=== PATIENT | female | born 1950 | race Caucasian/White ===

== ENCOUNTER 2017-12-23 11:43 | Observation (INO) | payer OTHER ==
[~2017-12-23] VITALS: Ht 165.1 cm; Wt 84.4 kg
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
[2017-12-23 12:35] LABS: BASOPHILS # (AUTO) 0.1 (0.0-0.1); BASOPHILS % 0.8 % (0.0-1.0); EOSINOPHILS # (AUTO) 0.3 (0.0-0.4); EOSINOPHILS % 4.9 % (0.0-6.0); HEMATOCRIT 42.3 % (34.2-44.1); HEMOGLOBIN 13.7 g/dL (12.0-16.0); LYMPHOCYTES # (AUTO) 1.7 (1.0-3.2); LYMPHOCYTES % 26.2 % (18.0-39.1); MEAN CORPUSCULAR HEMOGLOBIN 28.5 pg (28-32); MEAN CORPUSCULAR HGB CONC 32.4 g/dL (31-35); MEAN CORPUSCULAR VOLUME 88.1 fL (81-99); MONOCYTES # (AUTO) 0.6 (0.2-0.8); MONOCYTES % 10.1 % (4.4-11.3); NEUTROPHILS # (AUTO) 3.7 (2.1-6.9); NEUTROPHILS % 57.7 % (38.7-80.0); PLATELET COUNT 179 x10e3/uL (140-360); RED CELL DISTRIBUTION WIDTH 15.7 % (11.7-14.4)
--- NOTE | 2017-12-23 12:39 | Diagnostic Imaging Report ---
PROCEDURE: A single AP view of the chest. COMPARISON: None. INDICATIONS: CHEST PAIN FINDINGS: Patient is mildly rotated. Lines/tubes: None. Lungs: Lungs are well-inflated. No consolidation or pulmonary edema. Pleura: There is no pleural effusion or pneumothorax. Heart and mediastinum: Enlarged cardiac silhouette. Pulmonary vasculature is normal. Bones: No acute bony abnormality. IMPRESSION: 1. enlarged cardiac silhouette, without acute cardiopulmonary disease. Oziel Jaimes M.D. Dictated by: Oziel Jaimes M.D. on 12/23/2017 at 12:39 Electronically approved by: Oziel Jaimes M.D. on 12/23/2017 at 12:39
[2017-12-23 12:47] LABS: INR 1.1; PROTHROMBIN TIME 13.4 seconds (11.9-14.5)
[2017-12-23 12:48] LABS: PARTIAL THROMBOPLASTIN TIME 27.1 seconds (23.8-35.5)
[2017-12-23 13:00] LABS: ALANINE AMINOTRANSFERASE 11 IU/L (0-55); ALBUMIN 3.3 g/dL (3.5-5.0); ALKALINE PHOSPHATASE 66 IU/L (40-150); ANION GAP 12.9 mmol/L (8-16); BLOOD UREA NITROGEN 13 mg/dL (7-26); BUN/CREATININE RATIO 19 (6-25); CALCIUM 8.9 mg/dL (8.4-10.2); CARBON DIOXIDE 27 mmol/L (22-29); CHLORIDE 105 mmol/L (98-107); CHOL/HDL RATIO 3.1 (3.0-3.6); CHOLESTEROL 150 MD/DL (0-199); CREATININE, SERUM 0.68 mg/dL (0.57-1.11); EST GLOMERULAR FILTRATION RATE > 60 ML/MIN (60-); GLUCOSE 110 mg/dL (74-118); HDL CHOLESTEROL 48 MG/DL (40-60); LDL CHOLESTEROL 71 MG/DL (60-130); MAGNESIUM 1.6 MG/DL (1.3-2.1); POTASSIUM 3.9 mmol/L (3.5-5.1); SODIUM 141 mmol/L (136-145); TRIGLYCERIDES 156 MG/DL (0-149)
[2017-12-23 13:20] LABS: THYROID STIMULATING HORMONE 1.782 uIU/mL (0.350-4.940)
[2017-12-23] MEDS ORDERED: HYDROCODONE/APAP 5MG-325MG TAB PO ONE (13:45)
[2017-12-23] MEDS ORDERED: ASPIRIN 81 MG CHEW TAB PO ONE (14:15)
[2017-12-23] MEDS: NITROGLYCERIN 2% OINT 1 GM PKT TOP SCH ×2 (14:37→21:00)
[2017-12-23] MEDS: FAMOTIDINE 20 MG TAB PO SCH ×2 (14:37→21:00)
--- OUTSIDE RECORDS SUMMARY | 2017-12-23 19:42 | XMS REPORT | Clinical Summary ---
Author Author [facility] Address Unknown Phone Unavailable Care Team Providers Care Weight Guesser Name Role Phone Christopher Gunderson MD PCP [...] (VITAMIN C) 500 MG tablet every morning. ynpypsjd-ahc-[id number]-lute Take 1 tablet by mouth Active in [...] Date Type Specialty Care Team Description 04/30/2017 [facility] General Internal Medicine Elbert Fry, Elevated INR [...] Procedure Name Priority Date/Time Associated Diagnosis Comments NM APPLY FOREARM Routine 01/30/2017 Results for this [...] vein thrombosis/pulmonary embolism. Specimen Performing Laboratory Blood [facility] DEPARTMENT OF PATHOLOGY AND GENOMIC MEDICINE [id number] [place] [address] [place] [address] * CBC with platelet and differential (05/02/2017 [...] (promyelocytes, myelocytes, metamyelocytes) Specimen Performing Laboratory Blood [facility] DEPARTMENT OF PATHOLOGY AND GENOMIC MEDICINE [id number] [place] [id number] * Hemoglobin & hematocrit (04/30/2017 7:59 PM) Only the most recent of 3 results within the time period is included. Component Value Ref Range HGB 11.3 (L) 12.0 - 16.0 g/dL HCT 35.2 (L) 37.0 - 47.0 % Specimen Performing Laboratory Blood [facility] DEPARTMENT OF PATHOLOGY AND GENOMIC MEDICINE [id number] [place] [address] [place] [address] * XR Chest 1 Vw Portable (04/30/2017 10:47 AM) Specimen Performing Laboratory [address] [address] Narrative EXAMINATION:XR CHEST 1 VW PORTABLE CLINICAL HISTORY:Cough COMPARISON:December 20, 2015. FINDINGS:. The mediastinum appears unremarkable. The lungs are free of acute abnormality. IMPRESSION: There is cardiomegaly. There are no acute findings visualized and the single view [id number] Procedure Note Interface, Radiology Results Incoming - 04/30/2017 11:00 AM CDT EXAMINATION: XR CHEST 1 VW PORTABLE CLINICAL HISTORY: Cough COMPARISON: December 20, 2015. FINDINGS:. The mediastinum appears unremarkable. The lungs are free of acute abnormality. IMPRESSION: There is cardiomegaly. There are no acute findings visualized and the single view [id number] * Estimated GFR (04/30/2017 10:27 AM) Only [...] and Americans. Specimen Performing Laboratory Plasma specimen [facility] DEPARTMENT OF PATHOLOGY AND GENOMIC MEDICINE [address] [place] [address] * Partial thromboplastin time, activated (04/30/2017 10:27 AM) Component Value Ref Range PTT 66.5 (H) 23.0 - 36.0 sec Comment: PTT therapeutic range for unfractionated heparin is 61.0-112.0 seconds which corresponds to Anti-Xa 0.3-0.7 U/ml. Specimen Performing Laboratory Blood [facility] DEPARTMENT OF PATHOLOGY AND [facility] MEDICINE [id number] [place] [address] [place] [address] * Comprehensive metabolic panel (04/30/2017 10:27 AM) [...] 1.2 mg/dL Specimen Performing Laboratory Plasma specimen [facility] DEPARTMENT OF PATHOLOGY AND [facility]ICINE [address] [place] [address] [place] [address] * Uric acid level (04/26/2017 5:42 PM) Component Value Ref Range Uric acid 3.9 2.4 - 5.7 mg/dL Specimen Performing Laboratory Plasma specimen [facility] DEPARTMENT OF PATHOLOGY AND [facility]IC[facility] [address] [place] [address] [place] [address] * PV duplex venous lower extremity (04/26/2017 5:31 PM) Specimen Performing Laboratory [facility] [address] [place] [address] Narrative The right lower extremity was negative for deep vein thrombosis. PRELIMINARY REPORT: NEGATIVE DVT STUDY * XR Knee 4+ Vw Left (04/26/2017 4:35 PM) Specimen Performing Laboratory [facility] [address] [place] [address] Narrative EXAMINATION:XR KNEE 4VW LEFT CLINICAL HISTORY:knee pain and edema COMPARISON:None IMPRESSION: Small suprapatellar joint effusion. Medial soft tissue edema. No fracture or dislocation Moderate degenerative patellofemoral joint space narrowing [id number] Procedure Note Interface, Radiology Results Incoming - 04/26/2017 4:43 PM CDT EXAMINATION: XR KNEE 4 VW LEFT CLINICAL HISTORY: knee pain and edema COMPARISON: None IMPRESSION: Small suprapatellar joint effusion. Medial soft tissue edema. No fracture or dislocation Moderate degenerative patellofemoral joint space narrowing [id number] * SPLINT APPLICATION (01/30/2017 8:42 PM) Narrative [...] Contrast (01/30/2017 6:51 PM) Specimen Performing Laboratory [facility] [address] [place] [address] Narrative Procedure:CT CERVICAL SPINE WO CONTRAST REFERRING [...] fracture or subluxation of the cervical spine. [facility]-[id number] Procedure Note Interface, Radiology Results Incoming - [...] fracture or subluxation of the cervical spine. [id number] * CT Maxillofacial Wo Contrast (01/30/2017 6:51 PM) Specimen Performing Laboratory [facility] [address] [place] [address] Narrative EXAMINATION: CT MAXILLOFACIAL WO CONTRAST CLINICAL [...] There is no acute maxillofacial osseous abnormality. [id number] Procedure Note Interface, Radiology Results Incoming - [...] There is no acute maxillofacial osseous abnormality. [id number] * CT Head Wo Contrast (01/30/2017 6:51 PM) Specimen Performing Laboratory [facility] [address] [place] [address] Narrative Procedure:CT HEAD WO CONTRAST REFERRING PHYSICIAN:HOSSEIN [...] evidence of acute intracranial abnormality or hemorrhage. [facility]-[id number] Procedure Note Interface, Radiology Results Incoming - [...] evidence of acute intracranial abnormality or hemorrhage. [facility]-[id number] * XR Hand 3+ Vw Right (01/30/2017 6:10 PM) Specimen Performing Laboratory [facility] [address] [place] [address] Narrative EXAMINATION:XR HAND 3VW RIGHT CLINICAL HISTORY:JOINT PAINHAND COMPARISON:None. IMPRESSION: Bony structures are diffusely osteopenic. There are moderate to severe degenerative changes involving the first carpometacarpal joint consistent with osteoarthritis. There is no evidence of acute fracture or dislocation. [id number] Procedure Note Interface, Radiology Results Incoming - 01/30/2017 7:06 PM CDT EXAMINATION: XR HAND 3 VW RIGHT CLINICAL HISTORY: JOINT PAIN HAND COMPARISON: None. IMPRESSION: Bony structures are diffusely osteopenic. There are moderate to severe degenerative changes involving the first carpometacarpal joint consistent with osteoarthritis. There is no evidence of acute fracture or dislocation. [id number] * XR Wrist 3+ Vw Right (01/30/2017 6:10 PM) Specimen Performing Laboratory [facility] [address] [place] [address] Narrative EXAMINATION:XR WRIST 3VW RIGHT CLINICAL HISTORY:WRIST PAINFIRST STUDY COMPARISON:None. IMPRESSION: Bony structures are diffusely osteopenic. There is no evidence of acute fracture or dislocation. Moderate to severe degenerative changes are present in the first carpometacarpal joint consistent with osteoarthritis. [id number] Procedure Note Interface, Radiology Results Incoming - 01/30/2017 7:07 PM CDT EXAMINATION: XR WRIST 3 VW RIGHT CLINICAL HISTORY: WRIST PAIN FIRST STUDY COMPARISON: None. IMPRESSION: Bony structures are diffusely osteopenic. There is no evidence of acute fracture or dislocation. Moderate to severe degenerative changes are present in the first carpometacarpal joint consistent with osteoarthritis. [id number] after 12/22/2016 Insurance Payer Benefit Subscriber ID Type Phone Address Plan / Group [facility] xxxxxxxxxxx Work: [address] [place] [id number] Home:
--- OUTSIDE RECORDS SUMMARY | 2017-12-23 19:42 | XMS REPORT ---
Author Author [facility] Address Unknown Phone Unavailable Care Team Providers Care Lane Marker Installer Name Role Phone MIKA CONNOLLY Unavailable Unavailable Problems This patient has no known problems. Allergies, Adverse Reactions, Alerts This patient has no known allergies or adverse reactions. Medications This patient has no known medications. Results Test Description Test Time Test Comments Text Results Atomic Results Result Comments CHEST SINGLE (PORTABLE) [place] [address] Patient Name: RAUL BOUDREAUX MR #: [id number] : 1950 Age/Sex: 67/F Req #: [id number] Adm Physician: Ordered by: MIKA CONNOLLY MD Report #: [id number] Location: ER Room/Bed: Procedure: [id number] DX/CHEST SINGLE (PORTABLE) Exam Date: 12/23/17 Exam Time: 1220 REPORT STATUS: Signed PROCEDURE: A single AP view of the chest. COMPARISON: None. INDICATIONS: CHEST PAIN FINDINGS: Patient is mildly rotated. Lines/tubes: None. Lungs: Lungs are well-inflated. No consolidation or pulmonary edema. Pleura: There is no pleural effusion or pneumothorax. Heart and mediastinum: Enlarged cardiac silhouette. Pulmonary vasculature is normal. Bones: No acute bony abnormality. IMPRESSION: 1. enlarged cardiac silhouette, without acute cardiopulmonary disease. Zacarias Jaimes M.D. Dictated by: Zacarias Jaimes M.D. on 12/23/2017 at 12:39 Electronically approved by: Zacarias Jaimes M.D. on 12/23/2017 at 12 :39 Dictated By: ZACARIAS JAIMES MD 1239 Transcribed By: SUNNY on 12/23/17 1239 COPY TO: MIKA CONNOLLY MD
[2017-12-23 21:00] VITALS: BP 110/59
[2017-12-23 21:50] LABS: CREATINE KINASE 15 IU/L (29-168)
[2017-12-24] VITALS (8 sets, daily range): BP systolic 97–156; BP diastolic 53–90
[2017-12-24] MEDS: NITROGLYCERIN 2% OINT 1 GM PKT TOP SCH ×5 (03:00→22:24)
[2017-12-24] MEDS ORDERED: DILTIAZEM 24HR180 MG PO (06:12)
[2017-12-24] MEDS ORDERED: METOPROLOL TART50 MG PO ×2 (06:12→06:32)
[2017-12-24 06:32] LABS: BASOPHILS # (AUTO) 0.1 (0.0-0.1); BASOPHILS % 0.9 % (0.0-1.0); EOSINOPHILS # (AUTO) 0.4 (0.0-0.4); EOSINOPHILS % 6.6 % (0.0-6.0); HEMATOCRIT 38.5 % (34.2-44.1); HEMOGLOBIN 12.6 g/dL (12.0-16.0); LYMPHOCYTES # (AUTO) 2.1 (1.0-3.2); LYMPHOCYTES % 35.4 % (18.0-39.1); MEAN CORPUSCULAR HEMOGLOBIN 28.6 pg (28-32); MEAN CORPUSCULAR HGB CONC 32.7 g/dL (31-35); MEAN CORPUSCULAR VOLUME 87.5 fL (81-99); MONOCYTES # (AUTO) 0.7 (0.2-0.8); MONOCYTES % 11.6 % (4.4-11.3); NEUTROPHILS # (AUTO) 2.6 (2.1-6.9); PLATELET COUNT 169 x10e3/uL (140-360); RED CELL DISTRIBUTION WIDTH 15.6 % (11.7-14.4)
[2017-12-24] MEDS ORDERED: MULTI-VITAMIN1 EACH PO (06:32)
[2017-12-24] MEDS ORDERED: DOCUSATE CALCI240 MG PO (06:32)
[2017-12-24] MEDS ORDERED: PRAVASTATIN SOD20 MG PO (06:32)
[2017-12-24] MEDS ORDERED: LISINOPRIL2.5 MG PO (06:32)
[2017-12-24] MEDS ORDERED: ALPRAZOLAM0.25 M1 PO (06:32)
[2017-12-24] MEDS ORDERED: lidocaine patch (06:32)
[2017-12-24] MEDS ORDERED: CLONAZEPAM0.5 MG PO (06:32)
[2017-12-24] MEDS ORDERED: LORATADINE10 MG PO (06:32)
[2017-12-24] MEDS ORDERED: FERROUS SULFAT324 MG PO (06:32)
[2017-12-24] MEDS ORDERED: ASPIR-LOW81 MG (06:32)
[2017-12-24] MEDS ORDERED: IPRATROPIU0.2 MG/1 M NEB (06:32)
[2017-12-24] MEDS ORDERED: VITAMIN D1000 UNI1 PO (06:32)
[2017-12-24] MEDS ORDERED: PANTOPRAZOLE SO40 MG PO (06:32)
[2017-12-24] MEDS ORDERED: CYMBALTA30 MG PO (06:32)
[2017-12-24] MEDS ORDERED: CALCIUM 500+D1 EACH PO (06:32)
[2017-12-24 06:58] LABS: ANION GAP 12.3 mmol/L (8-16); BLOOD UREA NITROGEN 11 mg/dL (7-26); BUN/CREATININE RATIO 15 (6-25); CALCIUM 8.8 mg/dL (8.4-10.2); CARBON DIOXIDE 29 mmol/L (22-29); CHLORIDE 105 mmol/L (98-107); CHOL/HDL RATIO 3.5 (3.0-3.6); CHOLESTEROL 144 MD/DL (0-199); CREATINE KINASE 11 IU/L (29-168); CREATININE, SERUM 0.72 mg/dL (0.57-1.11); EST GLOMERULAR FILTRATION RATE > 60 ML/MIN (60-); GLUCOSE 107 mg/dL (74-118); HDL CHOLESTEROL 41 MG/DL (40-60); LDL CHOLESTEROL 70 MG/DL (60-130); POTASSIUM 4.3 mmol/L (3.5-5.1); SODIUM 142 mmol/L (136-145); TRIGLYCERIDES 165 MG/DL (0-149)
--- NOTE | 2017-12-24 08:55 | Consultation ---
DATE OF CONSULTATION: December 24, 2017 CARDIOLOGY CONSULTATION REASON FOR CONSULTATION: Chest pain and AFib. HPI: This is a 67-year-old female that presented with chest pain and discomfort. According to the her, she started having chest pain, palpitations and heart rate was high. She described it as a pressure with tightness and felt in the center of her chest with no radiation on a scale of 5/10. She also she had difficulty with breathing and nauseated. She states that it started yesterday and it came again today and that she decided to come to the emergency room for evaluation. She has a history of AFib, and a recent implant of the Watchman device because she was not able to tolerate anticoagulation. She denies any dizziness, any headache or diaphoresis. Troponin was negative. EKG was AFib with controlled rate. Chest x-ray was negative. BNP was 427. PAST MEDICAL HISTORY: Hypertension, CAD, AFib, anxiety, and GERD. PAST SURGICAL HISTORY: Tonsillectomy, stomach stapling, Watchman device. FAMILY HISTORY: Positive for hypertension. SOCIAL HISTORY: No smoking. No drinking. MEDICATIONS: See med list. ALLERGIES: SHE IS ALLERGIC TO REGLAN AND CEPHALEXIN. REVIEW OF SYSTEMS: Negative except as mentioned above. PHYSICAL EXAMINATION VITAL SIGNS: Temperature 97, heart rate 75, blood pressure 100/60, respirations 18, oxygen saturation 98% on room air. GENERAL: She is awake, alert and oriented times 3. HEENT: Mucous membrane moist. NECK: Supple. LUNGS: Bilateral clear to auscultation. CARDIOVASCULAR: Irregularly irregular. ABDOMEN: Soft. NEUROLOGICAL: Intact. EXTREMITIES: With no edema. LABS: Sodium 142, potassium 4.3, chloride 105, CO2 29, BUN 11, creatinine 0.72, glucose 107. White blood cells 5.79, hemoglobin 12.6, hematocrit 38.5, and platelet 169,000. PT 13.4, PTT 27.1 and INR 1.1. IMPRESSION 1. Chest pain. 2. Atrial fibrillation. 3. Hypertension. 4. History of Watchman implanted device. 5. History of gastroesophageal reflux disease. 6. History of stomach stapling. ASSESSMENT AND PLAN: Will get an echo to assess the LV and the valve function. Her BNP was elevated, but she has no clinical symptoms of CHF. Heart rate is controlled. She is on baby aspirin. Will get serial cardiac enzymes. Further cardiac workup pending clinical course. Thank you for this consultation. DICTATED BY KEN CALIX NP Job#: [id number] RI
[2017-12-24] MEDS ORDERED: ASPIRIN 325 MG TAB EC PO SCH (09:00)
[2017-12-24] MEDS: FAMOTIDINE 20 MG TAB PO SCH ×2 (10:42→21:05)
[2017-12-24] MEDS ORDERED: IPRATROPIUM BROMIDE 0.02% 2.5 ML NEB NEB PRN ×2 (13:15→13:30)
--- NOTE | 2017-12-24 15:11 | History and Physical ---
HISTORY OF PRESENT ILLNESS: She is a 67-year-old female with a past medical history positive for hypertension, chronic atrial fibrillation, history of gastric stapling, gastric bleeding, who came to the hospital complaining of chest pain and palpitations. The patient was found to be in atrial fibrillation with some PVCs, no evidence of any ST segment elevation or depression. Troponins are negative. Patient has been seen by Dr. Garcia in cardiology, who ordered an echocardiogram. The echocardiogram showed an ejection fraction of 30% to 35%. He wants to order an electrophysiology cardiology evaluation, also. REVIEW OF SYSTEMS: CARDIOVASCULAR: She did have chest pain, which is resolved. No shortness of breath. RESPIRATORY: No shortness of breath. No cough. GASTROINTESTINAL: No nausea, no vomiting, no diarrhea. GENITOURINARY: No frequency, no dysuria. ALLERGIES: ALLERGIC TO REGLAN AND CEPHALEXIN. SOCIAL HISTORY: She does not smoke. She does not drink. PAST MEDICAL HISTORY: Chronic atrial fibrillation, hypertension, gastroesophageal reflux disease, history of GI bleed and a history of cardiomyopathy. PHYSICAL EXAMINATION: VITAL SIGNS: Blood pressure 134/73. Temperature 96.4. Heart rate 73 per minute. Respiratory rate is 18 per minute. Oxygen saturation 99%. LAB: On the BMP: Sodium 142, potassium 4.3, chloride 105, CO2 29, BUN 11, creatinine 0.72, glucose is 107. On the CBC: White blood count 5.79, hemoglobin 12.6, hematocrit 38.5, platelet count 169,000. PT 13.4, PTT 27.1, INR 1.10. AST 15, ALT 11, total bilirubin 0.3, alkaline phosphatase 66. Electrocardiogram, as I said, showed atrial fibrillation with some PVCs, left axis deviation, minimal voltage criteria for LVH, nonspecific ST-T wave abnormalities, prolonged QT. Troponins are completely negative also times 3. FINAL IMPRESSION: 1. Chest pain. 2. Chronic atrial fibrillation. 3. Hypertension. 4. Gastroesophageal reflux disease. 5. History of prior gastrointestinal bleed secondary to Coumadin and Xarelto. 6. Severe cardiomyopathy. PLAN OF TREATMENT: Continue aspirin 325 mg daily. Continue nitroglycerin 0.4 mg sublingual as needed for chest pain. We are going to resume the home medications. Dr. Garcia saw her from the cardiology point of view. He recommended an electrophysiology consultation. We are going to continue calcium carbonate 500 mg daily. Cholecalciferol 1000 units daily. Clonazepam 0.5 mg daily. Cardizem 180 mg daily. Colace 100 mg daily. Cymbalta 30 mg daily. Pepcid 20 mg twice a day. Ferrous sulfate 325 mg daily. Albuterol q.8 h. as needed for shortness of breath. Lisinopril 2.5 mg daily. Claritin 10 mg daily. Metoprolol, she is taking 50 mg in the morning and 100 mg at night. Multivitamin 1 tablet daily. Nitroglycerin paste 1 gram to chest wall q.6 h. Protonix 40 mg daily. Pravastatin 40 mg daily. I asked the patient about anticoagulation. Apparently she has been anticoagulated before with Coumadin and Xarelto. She got major bleeding; so, she was placed on a cardiac device and she cannot get anticoagulation because of that. She is just taking aspirin. Dr. Garcia is the protective signal operations supervisor on the case. He is going to order an electrophysiology cardiology consultation. Job#: [id number] EV
[2017-12-24] MEDS ORDERED: RIVAROXABAN 15 MG TABLET PO SCH (16:30)
[2017-12-24] MEDS ORDERED: METOPROLOL TARTRATE 50 MG TAB PO SCH (21:00)
[2017-12-24] MEDS ORDERED: PRAVASTATIN 20 MG TAB PO SCH (21:00)
[2017-12-25] VITALS: BP 156/81
[2017-12-25 00:51] VITALS: BP 134/81
[2017-12-25 04:00] VITALS: BP 127/63
[2017-12-25 08:26] VITALS: BP 121/68
[2017-12-25] MEDS: NITROGLYCERIN 2% OINT 1 GM PKT TOP SCH (08:48)
[2017-12-25] MEDS: FAMOTIDINE 20 MG TAB PO SCH (08:49)
[2017-12-25] MEDS ORDERED: DOCUSATE CALCIUM 240 MG PO SCH (09:00)
[2017-12-25] MEDS ORDERED: NON-FORMULARY MEDICATION (Pravastatin Sodium 20 MG) PO SCH (09:00)
[2017-12-25] MEDS ORDERED: ASPIRIN 81 MG CHEW TAB PO SCH (09:00)
[2017-12-25] MEDS ORDERED: MULTIVITAMINS/MINERALS TAB PO SCH (09:00)
[2017-12-25] MEDS ORDERED: DOCUSATE SODIUM 100 MG CAP PO SCH (09:00)
[2017-12-25] MEDS ORDERED: DULOXETINE HCL 30 MG DELAYED RELEASE PO SCH (09:00)
[2017-12-25] MEDS ORDERED: CALCIUM CARBONATE 500 MG CHEWABLE TABS PO SCH (09:00)
[2017-12-25] MEDS ORDERED: CHOLECALCIFEROL 1,000 UNIT TAB PO SCH (09:00)
[2017-12-25] MEDS ORDERED: LISINOPRIL 2.5 MG TAB PO SCH (09:00)
[2017-12-25] MEDS ORDERED: FERROUS SULFATE 325 MG TAB PO SCH (09:00)
[2017-12-25] MEDS ORDERED: CLONAZEPAM 0.5 MG TAB PO SCH (09:00)
[2017-12-25] MEDS ORDERED: LORATADINE 10 MG TAB PO SCH (09:00)
[2017-12-25] MEDS ORDERED: DILTIAZEM HCL 180 MG CAP CD PO SCH (09:00)
[2017-12-25] MEDS ORDERED: METOPROLOL TARTRATE 50 MG TAB PO SCH (09:00)
[2017-12-25] MEDS ORDERED: PANTOPRAZOLE SOD 40 MG TABEC PO SCH (09:00)
[2017-12-25 12:18] VITALS: BP 116/76
--- NOTE | 2017-12-26 02:48 | Discharge Summary ---
A 67-year-old female who has a past medical history positive for severe cardiomyopathy, hypertension, chronic atrial fibrillation, history of gastric stapling, history of gastric bleeding, came to the hospital complaining of chest pain and palpitations. Patient was found to be in atrial fibrillation with some PVCs. No evidence of any ST-segment elevation or depression. Troponin was negative. She was seen by Dr. Garcia, cardiology, who do an cardiac which showed a very low ejection fraction of 30% to 35%. Dr. Garcia recommended for her today to go home. She is going to have a followup by electrophysiology and cardiology for possibility of implantable cardiac defibrillator. PHYSICAL EXAMINATION HEART: Shows irregularly irregular heart rate. Normal S1 and S2 sounds. LUNGS: Clear bilaterally. ABDOMEN: Soft. EXTREMITIES: Show no evidence cyanosis or trauma. FINAL IMPRESSION 1. Chronic atrial fibrillation. 2. Severe hypertension. 3. Chronic systolic congestive heart failure secondary to severe cardiomyopathy. MEDICATIONS: On discharge: 1. Pravachol 20 mg daily. 2. Pepcid 20 mg twice a day. 3. Aspirin 162 mg daily. 4. Cardizem 180 mg daily. 5. Claritin 10 mg daily. 6. Protonix 40 mg daily. 7. Calcium carbonate 500 mg daily. 8. Cymbalta 30 mg daily for depression. 9. Metoprolol 50 mg in the morning and 100 mg at night. 10. Colace 100 mg daily. 11. Cholecalciferol mg daily. 12. Ferrous sulfate 325 mg daily. 13. Lisinopril 5 mg daily. 14. Clonazepam 0.5 mg daily as needed for anxiety. 15. Multivitamin tablet daily. She is going to follow up Dr. Garcia, and also electrophysiology and cardiology for the possibility of an implantable cardiac defibrillator or Life Vest as an outpatient. BERNARDO NEIL MD Job#: [id number] ND
[2017-12-26] MEDS ORDERED: LISINOPRIL 2.5 MG TAB PO SCH (09:00)
== END 2017-12-25 14:06 | disposition home or self-care (01) ==
LOC: EDBD 11:43 → ER 11:43 → ERHOLD 14:55 → ER 14:55 → IMCU 19:39
PROVIDERS: ADMIT Internal Medicine; ATTEND Internal Medicine
DX: R07.9 Chest pain, unspecified (principal); I48.2 Chronic atrial fibrillation; K21.9 Gastro-esophageal reflux disease without esophagitis; I11.0 Hypertensive heart disease with heart failure; I50.22 Chronic systolic (congestive) heart failure; Z95.818 Presence of other cardiac implants and grafts; Z88.1 Allergy status to other antibiotic agents; Z88.8 Allergy status to other drugs, medicaments and biological substances; I42.9 Cardiomyopathy, unspecified
CPT/HCPCS: 36415 ×2; 71045; 80048; 80053; 80061 ×2; 82550 ×2; 82553 ×2; 83735; 83880; 84100; 84443; 84484 ×2; 85025 ×2; 85610; 85730; 93005; 93306; 96365; 99284; G0378 ×3

== ENCOUNTER → 2018-02-22 | Day surgery (SDC) | payer OTHER ==
[2018-02-21 12:26] VITALS: BP 134/92
[2018-02-21 12:32] LABS: BASOPHILS # (AUTO) 0.1 (0.0-0.1); BASOPHILS % 0.7 % (0.0-1.0); EOSINOPHILS # (AUTO) 0.2 (0.0-0.4); HEMATOCRIT 43.9 % (34.2-44.1); HEMOGLOBIN 14.4 g/dL (12.0-16.0); LYMPHOCYTES # (AUTO) 1.9 (1.0-3.2); LYMPHOCYTES % 25.2 % (18.0-39.1); MEAN CORPUSCULAR HEMOGLOBIN 29.5 pg (28-32); MEAN CORPUSCULAR HGB CONC 32.8 g/dL (31-35); MONOCYTES # (AUTO) 0.7 (0.2-0.8); NEUTROPHILS # (AUTO) 4.5 (2.1-6.9); NEUTROPHILS % 60.7 % (38.7-80.0); PLATELET COUNT 183 x10e3/uL (140-360); RED BLOOD COUNT 4.88 x10e6/uL (3.6-5.1); RED CELL DISTRIBUTION WIDTH 15.3 % (11.7-14.4)
[2018-02-21 12:47] LABS: INR 1.18; PROTHROMBIN TIME 14.1 seconds (11.9-14.5)
[2018-02-21 12:48] LABS: PARTIAL THROMBOPLASTIN TIME 27.4 seconds (23.8-35.5)
[2018-02-21 12:55] LABS: ANION GAP 11.8 mmol/L (8-16); BLOOD UREA NITROGEN 19 mg/dL (7-26); BUN/CREATININE RATIO 25 (6-25); CALCIUM 9.7 mg/dL (8.4-10.2); CARBON DIOXIDE 30 mmol/L (22-29); CHLORIDE 104 mmol/L (98-107); CREATININE, SERUM 0.77 mg/dL (0.57-1.11); EST GLOMERULAR FILTRATION RATE > 60 ML/MIN (60-); GLUCOSE 111 mg/dL (74-118); POTASSIUM 3.8 mmol/L (3.5-5.1); SODIUM 142 mmol/L (136-145)
--- NOTE | 2018-02-21 13:02 | Diagnostic Imaging Report ---
PROCEDURE: Frontal and lateral views of the chest. COMPARISON: Portable chest 12/23/2017. INDICATIONS: HEART CATH PER OPERATIVE CHEST X-RAY FINDINGS: Lines/tubes: None. Lungs: The lungs are well inflated and clear. There is no evidence of pneumonia or pulmonary edema. Pleura: There is no pleural effusion or pneumothorax. Heart and mediastinum: The heart and the mediastinum are normal. Bones: No acute bony abnormality. Degenerative changes of the thoracic spine. IMPRESSION: No acute radiographic abnormality. Dictated by: Mirza Badillo M.D. on 02/21/2018 at 13:03 Electronically approved by: Mirza Badillo M.D. on 02/21/2018 at 13:03
[2018-02-22] VITALS (11 sets, daily range): BP systolic 113–153; BP diastolic 84–126
[~2018-02-22] MED LIST: ALPRAZOLAM0.25 M1 PO; ASPIR-LOW81 MG; CALCIUM 500+D1 EACH PO; CLONAZEPAM0.5 MG PO; CYMBALTA30 MG PO; DILTIAZEM 24HR180 MG PO; DOCUSATE CALCI240 MG PO; FENTANYL CITRATE/PF 100MCG/2 ML INJ ONE; FERROUS SULFAT324 MG PO; HEPARIN SOD/SOD CHLORIDE 2,000 ML ONE; IOPAMIDOL 370 MG/ML 200 ML INFUS..BTL INJ ONE; IPRATROPIU0.2 MG/1 M NEB; LIDOCAINE HCL 2% LOCAL 20 ML VIAL ONE; LISINOPRIL2.5 MG PO; LORATADINE10 MG PO; METOPROLOL TART50 MG PO; MIDAZOLAM HCL 2 MG/2 ML VIAL ONE; MULTI-VITAMIN1 EACH PO; PANTOPRAZOLE SO40 MG PO; PRAVASTATIN SOD20 MG PO; SODIUM CHLORIDE 0.9% 1000ML 1,000 ML ONE; VITAMIN D1000 UNI1 PO; lidocaine patch
--- OUTSIDE RECORDS SUMMARY | 2018-02-22 07:04 | XMS REPORT | Continuity of Care Document ---
Author Author [facility] Organization [facility] Address [address] [address] Phone Unavailable Care Team Providers Care Java Lead Architect Name Role Phone JEN THRASHER MD PCP Insurance Providers Guarantor Raul Boudreaux Address [address] [place] [address] Payer [facility] Plan Policy Number [id number] Subscriber's Name Raul Boudreaux Relationship 18 Self / Same As Patient Effective Date 13 Advance Directives Directive Response Recorded Date/Time Does the patient have an advance directive? No 12/23/17 9:00pm If yes, is advance directive on file with [facility]? No 12/23/17 9:00pm If not on file with [facility] will patient provide a copy? No 12/23/17 9:00pm Do you have a Directive to Physician? No 12/23/17 11:44am Do you have a Medical Power of [place] [employer]? No 12/23/17 11:44am Do you have an out of hospital Do Not Resuscitate Order? No 12/23/17 11:44am Do you have any special needs we should be aware of? No 12/23/17 11:44am Do you have a support person here with you today? Yes 12/23/17 11:44am Did patient receive Notice of Privacy Practices? Yes 12/23/17 11:44am Did patient receive patient rights and responsibilities? Yes 12/23/17 11:44am Problems Medical Problem Onset Date Status Atrial fibrillation Unknown Chest pain Unknown Medications Current Home Medications Medication Dose Units Route Directions Days Qty Instructions Start Date Alprazolam 0.25 Mg Tab.rapdis 0.25 Mg Oral Twice A Day Aspirin (Aspir-Low) 81 Mg Tablet.dr 162 Mg Daily Calcium Carbonate/Vitamin D3 (Calcium 500+D Tablet Chew) 1 Each Tab.chew Mg Oral Daily Cholecalciferol (Vitamin D3) (Vitamin D) 1,000 Unit Tablet 1,000 Unit Oral Daily 30 Tab Clonazepam 0.5 Mg Tablet 0.5 Mg Oral Daily Diltiazem Hcl (Diltiazem 24HR Er) 180 Mg Capcr Oral Every Morning Docusate Calcium 240 Mg Capsule 240 Mg Oral Daily Duloxetine Hcl (Cymbalta) 30 Mg Capsule.dr 30 Mg Oral Daily 30 Cap Ferrous Sulfate 324 Mg Tablet.dr 65 Oral Daily Ipratropium [facility] 0.2 Mg/1 Ml Solution 2.5 Ml Nebullizer Three Times A Day as needed for Da Lidocaine Patch Lisinopril 2.5 Mg Tablet 2.5 Mg Oral Daily 30 Tab Loratadine 10 Mg Tablet 10 Mg Oral Daily 30 Tab Metoprolol Tartrate 50 Mg Tablet 50 Mg Oral Every Morning Metoprolol Tartrate 50 Mg Tablet 100 Mg Oral Bedtime Multivitamin (Multi-Vitamin Daily) 1 Each Tablet 1 Oral Daily Pantoprazole Sodium (Protonix) 40 Mg Tablet.dr 40 Mg Oral Daily Pravastatin Sodium 20 Mg Tablet 20 Mg Oral Daily Social History Social History Problem Response Recorded Date/Time Onset Date Status Hx Psychiatric Problems No 12/23/2017 9:00pm Not Applicable Not Applicable Hx Eating Disorder No 12/23/2017 9:00pm Not Applicable Not Applicable Hx Substance Use Disorder No 12/23/2017 9:00pm Not Applicable Not Applicable Hx Depression Yes 12/23/2017 9:00pm Not Applicable Not Applicable Hx Alcohol Use No 12/23/2017 9:00pm Not Applicable Not Applicable Hx Physical Abuse No 12/23/2017 9:00pm Not Applicable Not Applicable Smoking Status Start Date Stop Date Never Smoker Hospital Discharge Instructions No hospital discharge instruction information available. Plan of Care Discharge Date 12/25/17 2:06pm Disposition HOME, SELF-CARE Instructions/Education Provided Atrial Fibrillation Prescriptions See Medication Section Referrals JANET TOBAR MD (Cardiology) Order Date: 2 Days Entered Date: 12/25/2017 12:45pm Address: [address] [place] [id number] Additional Instructions/Education TAKE MEDICATION ORDERED FOLLOW UP WITH DR TOBAR ON WEDNESDAY Functional Status Query Response Date Recorded Assistive Devices None December 23, 2017 9:00pm Ambulation Ability Independent December 23, 2017 9:00pm Toileting Ability Independent December 24, 2017 6:12pm Allergies, Adverse Reactions, Alerts Allergen Type Severity Reaction Status Last Updated Cephalexin Allergy Unknown Active 12/23/17 REGLAN Allergy Unknown Active 12/23/17 Immunizations No immunization information available. Vital Signs Acute Vital Signs Vital Response Date/Time Temperature (Fahrenheit) 96.7 degrees F (97.6 - 99.5) 12/25/2017 12:18pm Pulse Pulse Rate (adult) 80 bpm (60 - 90) 12/25/2017 12:18pm Respiratory Rate 18 bpm (12 - 24) 12/25/2017 12:18pm Blood Pressure 116/76 mm Hg 12/25/2017 12:18pm Height 5 ft 5 in 12/23/2017 11:50am Weight 186 lb 12/23/2017 11:50am Body Mass Index 31.0 kg/m^2 12/23/2017 9:00pm Results Laboratory Results Test Name Result Units Flags Reference Collection Date/Time Result Date/ Time Comments White Blood Count 5.79 x10e3/uL 4.8-10.8 12/24/2017 5:50am 12/24/2017 6 :33am Red Blood Count 4.40 x10e6/uL 3.6-5.1 12/24/2017 5:50am 12/24/2017 6: 33am Hemoglobin 12.6 g/dL 12.0-16.0 12/24/2017 5:50am 12/24/2017 6:33am Hematocrit 38.5 % 34.2-44.1 12/24/2017 5:50am 12/24/2017 6:33am Mean Corpuscular Volume 87.5 fL 81-99 12/24/2017 5:50am 12/24/2017 6: 33am Mean Corpuscular Hemoglobin 28.6 pg 28-32 12/24/2017 5:50am 12/24/2017 6:33am Mean Corpuscular Hemoglobin Concent 32.7 g/dL 31-35 12/24/2017 5:50am 12/24/2017 6:33am Red Cell Distribution Width 15.6 % H 11.7-14.4 12/24/2017 5:50am 2017 6:33am Platelet Count 169 x10e3/uL 140-360 12/24/2017 5:50am 12/24/2017 6: 33am Neutrophils (%) (Auto) 45.0 % 38.7-80.0 12/24/2017 5:50am 12/24/2017 6: 33am Lymphocytes (%) (Auto) 35.4 % 18.0-39.1 12/24/2017 5:50am 12/24/2017 6: 33am Monocytes (%) (Auto) 11.6 % H 4.4-11.3 12/24/2017 5:50am 12/24/2017 6: 33am Eosinophils (%) (Auto) 6.6 % H 0.0-6.0 12/24/2017 5:50am 12/24/2017 6: 33am Basophils (%) (Auto) 0.9 % 0.0-1.0 12/24/2017 5:50am 12/24/2017 6:33am IM GRANULOCYTES % 0.5 % 0.0-1.0 12/24/2017 5:50am 12/24/2017 6:33am Neutrophils # (Auto) 2.6 2.1-6.9 12/24/2017 5:50am 12/24/2017 6:33am Lymphocytes # (Auto) 2.1 1.0-3.2 12/24/2017 5:50am 12/24/2017 6:33am Monocytes # (Auto) 0.7 0.2-0.8 12/24/2017 5:50am 12/24/2017 6:33am Eosinophils # (Auto) 0.4 0.0-0.4 12/24/2017 5:50am 12/24/2017 6:33am Basophils # (Auto) 0.1 0.0-0.1 12/24/2017 5:50am 12/24/2017 6:33am Absolute Immature Granulocyte (auto 0.03 x10e3/uL 0-0.1 12/24/2017 5: 50am 12/24/2017 6:33am Prothrombin Time 13.4 seconds 11.9-14.5 12/23/2017 12:15pm 12/23/2017 12:57pm Prothromb Time International Ratio 1.10 12/23/2017 12:15pm 2017 12:57pm Oral Anticoagulant Therapy INR Values: 1. Low Intensity Therapy 1.5 - 2.0 2. Moderate Intensity Therapy 2.0 - 3.0 3. High Intensity Therapy(1) 2.5 - 3.5 4. High Intensity Therapy(2) 3.0 - 4.0 5. Panic Value INR > 5.0 Activated Partial Thromboplast Time 27.1 seconds 23.8-35.5 12/23/2017 12 :15pm 12/23/2017 12:57pm Sodium Level 142 mmol/L 136-145 12/24/2017 5:50am 12/24/2017 7:05am Potassium Level 4.3 mmol/L 3.5-5.1 12/24/2017 5:50am 12/24/2017 7:05am Chloride Level 105 mmol/L 98-107 12/24/2017 5:50am 12/24/2017 7:05am Carbon Dioxide Level 29 mmol/L 22-12/24/2017 5:50am 12/24/2017 7: 05am Anion Gap 12.3 mmol/L 8-16 12/24/2017 5:50am 12/24/2017 7:05am Blood Urea Nitrogen 11 mg/dL 7-12/24/2017 5:50am 12/24/2017 7:05am Creatinine 0.72 mg/dL 0.57-1.11 12/24/2017 5:50am 12/24/2017 7:05am BUN/Creatinine Ratio 15 6-12/24/2017 5:50am 12/24/2017 7:05am Estimat Glomerular Filtration Rate > 60 ML/MIN 60- 12/24/2017 5:50am 7:05am Ranges were taken from the National Kidney Disease Education Program and the National Kidney Foundation literature. Reference ranges: 60 or greater: Normal 16-59 (for 3 consecutive months): Chronic kidney disease 15 or less: Kidney failure Glucose Level 107 mg/dL 74-118 12/24/2017 5:50am 12/24/2017 7:05am Calcium Level 8.8 mg/dL 8.4-10.2 12/24/2017 5:50am 12/24/2017 7:05am Phosphorus Level 3.0 MG/DL 2.3-4.7 12/23/2017 12:15pm 12/23/2017 1: 08pm Magnesium Level 1.6 MG/DL 1.3-2.1 12/23/2017 12:15pm 12/23/2017 1:08pm Total Bilirubin 0.3 mg/dL 0.2-1.2 12/23/2017 12:15pm 12/23/2017 1:08pm Aspartate Amino Transf (AST/SGOT) 15 IU/L 5-34 12/23/2017 12:15pm 12/23 1:08pm Alanine Aminotransferase (ALT/SGPT) 11 IU/L 0-55 12/23/2017 12:15pm 1:08pm Total Protein 6.6 g/dL 6.5-8.1 12/23/2017 12:15pm 12/23/2017 1:08pm Albumin 3.3 g/dL L 3.5-5.0 12/23/2017 12:15pm 12/23/2017 1:08pm Globulin 3.3 g/dL 2.3-3.5 12/23/2017 12:15pm 12/23/2017 1:08pm Albumin/Globulin Ratio 1.0 0.8-2.0 12/23/2017 12:15pm 12/23/2017 1: 08pm Alkaline Phosphatase 66 IU/L 40-150 12/23/2017 12:15pm 12/23/2017 1: 08pm Triglycerides Level 165 MG/DL H 0-149 12/24/2017 5:50am 12/24/2017 7: 05am Cholesterol Level 144 MD/DL 0-199 12/24/2017 5:50am 12/24/2017 7:05am Less than 200 mg/dL Low Risk 201 - 239 mg/dL Borderline Risk 240 mg/dl and greater High Risk LDL Cholesterol 70 MG/DL 60-130 12/24/2017 5:50am 12/24/2017 7:05am HDL Cholesterol 41 MG/DL 40-60 12/24/2017 5:50am 12/24/2017 7:05am Cholesterol/HDL Ratio 3.5 3.0-3.6 12/24/2017 5:50am 12/24/2017 7: 05am B-Type Natriuretic Peptide 427.3 pg/mL H 0-100 12/23/2017 12:15pm 2017 1:11pm Creatine Kinase 11 IU/L L 29-168 12/24/2017 5:50am 12/24/2017 7:05am Creatine Kinase MB 0.50 ng/mL 0-5.0 12/24/2017 5:50am 12/24/2017 7: 05am Troponin I 0.007 ng/mL 0-0.300 12/24/2017 5:50am 12/24/2017 7:05am Thyroid Stimulating Hormone (TSH) 1.782 uIU/mL 0.350-4.940 12/23/2017 12 :15pm 12/23/2017 1:20pm Procedures No procedure information available. Encounters Encounter Location Arrival/Admit Date Discharge/Depart Date Attending Provider Discharged Inpatient (obs) [facility] 12/23/17 7:39pm 2:06pm BERNARDO NEIL MD
--- OUTSIDE RECORDS SUMMARY | 2018-02-22 07:04 | XMS REPORT | Clinical Summary ---
Author Author [facility] Organization [facility] Address Unknown Phone Unavailable Care Team Providers Care Milker Machine Name Role Phone Christopher Gunderson MD PCP [...] (VITAMIN C) 500 MG tablet every morning. kctvtpkn-tjr-jzjy-[id number]-lute Take 1 tablet by mouth Active in (CENTRUM SILVER WOMEN) every morning. 8 mg iron-400 mcg-300 mcg tablet docusate sodium (COLACE) Take 100 mg by mouth Active 100 MG capsule every morning. warfarin (COUMADIN) 2.5 Take 1 tablet (2.5 mg 30 tablet 0 05/02/20 Active MG tablet total) by mouth daily. 17 warfarin (COUMADIN) 5 MG Take 1 tablet=5 [...] Date Type Specialty Care Team Description 04/30/2017 [facility] General Internal Medicine Elbert Fryalina, Elevated INR (Primary - Encounter MD Dx); 05/02/2017 Nadeem Morel MD Coagulation defect Jake Tatum MD 04/26/2017 Emergency Emergency Medicine Otf Henderson PA-C Acute pain of right knee Gopi Fenton MD (Primary Dx); Effusion of right knee after 02/21/2017 Social History Tobacco Use Types Packs/Day Years [...] 2013 MAMMOGRAM 09/22/2015 09/22/2013, 02/09/2012 INFLUENZA VACCINE 06/01/2018 Results * Prothrombin time with INR (05/02/2017 [...] vein thrombosis/pulmonary embolism. Specimen Performing Laboratory Blood [facility] DEPARTMENT OF PATHOLOGY AND GENOMIC MEDICINE [id number] [place] [address] [place] [address] * CBC with platelet and differential (05/02/2017 [...] (promyelocytes, myelocytes, metamyelocytes) Specimen Performing Laboratory Blood [facility] DEPARTMENT OF PATHOLOGY AND GENOMIC MEDICINE [address] [place] [address] * Hemoglobin & hematocrit (04/30/2017 7:59 PM) Only the most recent of 3 results within the time period is included. Component Value Ref Range HGB 11.3 (L) 12.0 - 16.0 g/dL HCT 35.2 (L) 37.0 - 47.0 % Specimen Performing Laboratory Blood [facility] DEPARTMENT OF PATHOLOGY AND GENOMIC [facility] [id number] [place] [address] [place] [address] * XR Chest 1 Vw Portable (04/30/2017 10:47 AM) Specimen Performing Laboratory [facility] [address] [place] [id number] Narrative EXAMINATION:XR CHEST 1 VW PORTABLE CLINICAL HISTORY:Cough COMPARISON:December 20, 2015. FINDINGS:. The mediastinum appears unremarkable. The lungs are free of acute abnormality. IMPRESSION: There is cardiomegaly. There are no acute findings visualized and the single view [id number] Procedure Note Interface, Radiology Results Incoming - 04/30/2017 11:00 AM CDT EXAMINATION: XR CHEST 1 VW PORTABLE CLINICAL HISTORY: Cough COMPARISON: December 20, 2015. FINDINGS:. The mediastinum appears unremarkable. The lungs are free of acute abnormality. IMPRESSION: There is cardiomegaly. There are no acute findings visualized and the single view [id number] * Estimated GFR (04/30/2017 10:27 AM) Only [...] and Americans. Specimen Performing Laboratory Plasma specimen [facility] OF PATHOLOGY AND [facility] MEDIC[facility] [address] [place] [address] * Partial thromboplastin time, activated (04/30/2017 10:27 AM) Component Value Ref Range PTT 66.5 (H) 23.0 - 36.0 sec Comment: PTT therapeutic range for unfractionated heparin is 61.0-112.0 seconds which corresponds to Anti-Xa 0.3-0.7 U/ml. Specimen Performing Laboratory Blood [facility] OF PATHOLOGY AND [facility] [address] [place] [address] * Comprehensive metabolic panel (04/30/2017 10:27 AM) [...] 1.2 mg/dL Specimen Performing Laboratory Plasma specimen [facility] DEPARTMENT OF PATHOLOGY AND [facility] MEDICINE [id number] [place] [address] [place] [address] * Uric acid level (04/26/2017 5:42 PM) Component Value Ref Range Uric acid 3.9 2.4 - 5.7 mg/dL Specimen Performing Laboratory Plasma specimen [facility] DEPARTMENT OF PATHOLOGY AND [facility] MEDICINE [id number] [place] [address] [place] [address] * PV duplex venous lower extremity (04/26/2017 5:31 PM) Specimen Performing Laboratory [facility] [address] [place] [address] Narrative The right lower extremity was negative for deep vein thrombosis. PRELIMINARY REPORT: NEGATIVE DVT STUDY * XR Knee 4+ Vw Left (04/26/2017 4:35 PM) Specimen Performing Laboratory [facility] [address] [place] [address] Narrative EXAMINATION:XR KNEE 4VW LEFT CLINICAL HISTORY:knee pain and edema COMPARISON:None IMPRESSION: Small suprapatellar joint effusion. Medial soft tissue edema. No fracture or dislocation Moderate degenerative patellofemoral joint space narrowing [id number] Procedure Note Interface, Radiology Results Incoming - 04/26/2017 4:43 PM CDT EXAMINATION: XR KNEE 4 VW LEFT CLINICAL HISTORY: knee pain and edema COMPARISON: None IMPRESSION: Small suprapatellar joint effusion. Medial soft tissue edema. No fracture or dislocation Moderate degenerative patellofemoral joint space narrowing [id number] after 02/21/2017 Insurance Payer Benefit Subscriber ID Type Phone Address Plan / Group [facility] xxxxxxxxxxx Work: [address] [place] [id number] Home:
--- NOTE | 2018-02-22 08:45 | Operative Report ---
DATE OF PROCEDURE: February 22, 2018 PROCEDURES PERFORMED 1. Left heart catheterization. 2. Selective coronary angiogram. 3. Left ventriculogram. INDICATION: Cardiomyopathy. BLOOD LOSS: Minimal. ANESTHESIA: Lidocaine 2% for local anesthesia, fentanyl and Versed for conscious sedation. DESCRIPTION OF PROCEDURE: After informed consent, patient was brought to the cardiac catheterization laboratory and placed on the table. Both groins were painted and draped in a sterile fashion. Lidocaine was injected in the right groin for local anesthesia. Right femoral artery was accessed by Seldinger technique, and a 5-Wallisian sheath was placed in the right femoral artery. Left main artery was cannulated using a JL4, 5-Wallisian catheter. Coronary angiogram was performed. Images obtained in multiple views. The right coronary artery was cannulated using a 3DRC 5-Wallisian catheter. Coronary angiogram was performed. Images obtained in multiple views. LV gram was performed using a pigtail catheter. Patient tolerated the procedure without any complications. REPORT LEFT MAIN: Normal caliber and no significant stenosis. LEFT ANTERIOR DESCENDING: Normal caliber, tortuous, and has luminal irregularities. LEFT CIRCUMFLEX: Normal caliber. No significant stenosis. RIGHT CORONARY ARTERY: Normal caliber. No significant stenosis. LV-GRAM: Diffuse hyperkinesis of left ventricle is noted. Overall ejection fraction of 30 to 35%. HEMODYNAMICS: Aortic pressure is 123/69. LV pressure is 128/5. LVEDP is 13. PLAN 1. Medical management. 2. Possible ICD for cardiomyopathy. Job#: [id number]
== END | disposition home or self-care (01) ==
LOC: CATH LAB 07:01
DX: I42.9 Cardiomyopathy, unspecified (principal); R94.39 Abnormal result of other cardiovascular function study; I77.1 Stricture of artery; I48.91 Unspecified atrial fibrillation; I10 Essential (primary) hypertension; E78.5 Hyperlipidemia, unspecified; Z01.810 Encounter for preprocedural cardiovascular examination; Z01.812 Encounter for preprocedural laboratory examination; Z01.818 Encounter for other preprocedural examination
CPT/HCPCS: 36415; 71046; 77002; 80048; 85025; 85610; 85730; 93005; 93458; C1760; J2001; J2250; J7030; Q9967; 36140; 93452